=== PATIENT | female | born 1980 | race Caucasian/White ===

== ENCOUNTER 2017-04-28 12:48 | Outpatient (CLI) | payer OTHER ==
[2017-04-28 13:44] LABS: ALT (SGPT) 15 U/L (8-55); AST (SGOT) 17 U/L (5-34); Albumin 4.1 g/dL (3.5-5.0); Alkaline Phosphatase 104 U/L (40-150); Bilirubin, Direct 0.2 mg/dL (0.1-0.3); Bilirubin, Total 0.4 mg/dL (0.2-1.2); Protein, Total 7.5 g/dL (6.0-8.3)
== END 2017-04-28 12:49 | disposition home or self-care (01) ==
LOC: BURLAB 12:48
PROVIDERS: ATTEND Podiatrist
DX: B35.1 Tinea unguium (principal)
CPT/HCPCS: 36415; 80076